=== PATIENT | male | born 1960 | race Caucasian/White ===

== ENCOUNTER 2022-01-09 14:13 | Inpatient (IN) ==
[2022-01-09] MEDS ORDERED: ALBUTEROL/IPRATROPIUM 3 ML NEB RESP TX STA (14:35)
[2022-01-09] MEDS ORDERED: FUROSEMIDE 40 MG/4 ML VIAL IV STA (14:35)
[2022-01-09 15:10] LABS: Arterial Base Excess iSTAT 15 MMOL/L (-2.5-2.5); Arterial O2 Saturation iSTAT 82 % (95-100); Arterial PCO2 iSTAT 72 MM HG (35-48); Arterial PO2 iSTAT 49 MM HG (80-95); Arterial Total CO2 iSTAT 46 MMO/L (23-27); Arterial pH iSTAT 7.393 (7.35-7.45)
[2022-01-09] MEDS ORDERED: LEVOFLOXACIN INJ 750 MG/150 ML PREMIX IV STA (15:12)
[2022-01-09 15:27] LABS: INR 1.1; PT Patient Result 12.1 SECS (10.1-12.1); Partial Thromboplastin Time 34.1 SECS (23.7-32.9)
[2022-01-09 15:33] LABS: Alanine Aminotransferase 14 U/L (16-61); Albumin 1.7 G/DL (3.4-5.0); Alkaline Phosphatase 77 U/L (45-117); Aspartate Amino Transferase 17 U/L (0-37); Bilirubin,Total < 0.39 MG/DL (0.20-1.00); Blood Urea Nitrogen 7 MG/DL (7-18); Calcium 8.3 MG/DL (8.5-10.1); Carbon Dioxide 39 MMOL/L (21-32); Chloride 97 MMOL/L (98-107); Glucose 179 MG/DL (74-106); Osmolality,Calculated 278.5 MOS/KG (273-304); Potassium 3.4 MMOL/L (3.5-5.1); Sodium 139 MMOL/L (136-145); Total Protein 6.4 G/DL (6.4-8.2)
[2022-01-09 15:38] LABS: Basophils % 0.2 % (0.0-0.8); Hematocrit 39.1 VOL% (42.0-52.0); Hemoglobin 11.5 GM/DL (14.0-18.0); Immature Granulocytes % 1.5 %; Immature Granulocytes Absolute 0.08 #; Lymphocytes # 0.4 10*3/uL (1.4-4.0); Lymphocytes % 7.6 % (21.2-54.2); Mean Corpuscular HGB Conc 29.4 GM/DL (32-36); Mean Corpuscular Volume 89.9 FL (87-102); Monocytes # 0.2 10*3/uL (0.11-0.8); Monocytes % 2.9 % (1.7-12.7); Neutrophils % 87.8 % (38.7-73.9); Platelet Count 147 T/CUMM (130-400); Red Blood Count 4.35 MC/CUMM (3.8-5.5); Red Cell Distribution Width 16.9 % (9.3-17.3); White Blood Count 5.2 T/CUMM (4-12)
[2022-01-09] MEDS ORDERED: ACETAMINOPHEN 325 MG TABLET PO PRN (16:58)
[2022-01-09] MEDS ORDERED: GLUCAGON 1 MG VIAL IM PRN (16:58)
[2022-01-09] MEDS ORDERED: hydrALAZINE 20 MG/1 ML VIAL IV PRN (16:58)
[2022-01-09] MEDS ORDERED: ALBUTEROL 2.5 MG/3 ML NEB RESP TX PRN (16:58)
[2022-01-09] MEDS ORDERED: ONDANSETRON 4 MG/2 ML VIAL IV PRN (16:58)
[2022-01-09] MEDS ORDERED: DEXTROSE 10% 250 ML BAG IV PRN (16:58)
[2022-01-09 17:37] LABS: Risk Ratio 2.65; Thyroid Stimulating Hormone 4.84 uIU/ml (0.358-3.74)
[2022-01-09 17:46] LABS: Amorphous Crystals,Urine Occasional /HPF (Few); Bacteria,Urine Occasional /HPF (Few); Hyaline Casts,Urine 1 /LPF (0-3); Mucus,Urine Occasional /LPF (Occasional); RBC,Urine 33 /HPF (0-4); Squamous Epithelial Cell,Urine Occasional /HPF (0-10); Triple Phosphate Crystal,Urine Occasional /HPF (Few)
[2022-01-09 17:48] LABS: Protein,Urine Negative (Negative); Urine Appearance Slightly Hazy (Clear); Urine Color Light Yellow (Yellow); Urine Specific Gravity 1.015 (1.001-1.035); Urine pH 7.5 (4.5-8.0)
[2022-01-09 17:49] LABS: Bilirubin,Urine Negative (Negative); Blood, Urine Large mg/dL (Negative); Glucose,Urine (UA) Negative (Negative); Ketones,Urine Negative (Negative); Nitrite,Urine Positive (Negative); Urine Urobilinogen 0.2 eU/dL (<2.0)
[2022-01-09] MEDS: ENOXAPARIN 40 MG/0.4 ML SYRINGE SUBCUT SCH (20:57)
[2022-01-09] MEDS: FUROSEMIDE 40 MG/4 ML VIAL IV SCH (20:58)
[2022-01-10 04:11] LABS: Arterial Base Excess iSTAT 23 MMOL/L (-2.5-2.5); Arterial Bicarbonate iSTAT 53.3 MMOL/L (20-26); Arterial O2 Saturation iSTAT 100 % (95-100); Arterial PCO2 iSTAT 86 MM HG (35-48); Arterial PO2 iSTAT 378 MM HG (80-95); Arterial Total CO2 iSTAT > 50 MMO/L (23-27); Arterial pH iSTAT 7.401 (7.35-7.45)
[2022-01-10 04:45] LABS: Hematocrit 37.1 VOL% (42.0-52.0); Hemoglobin 10.7 GM/DL (14.0-18.0); Immature Granulocytes Absolute 0.05 #; Lymphocytes # 0.6 10*3/uL (1.4-4.0); Lymphocytes % 10.9 % (21.2-54.2); Mean Corpuscular HGB Conc 28.8 GM/DL (32-36); Mean Corpuscular Volume 92.3 FL (87-102); Mean Platelet Volume 9.5 FL (9.6-12.0); Monocytes # 0.4 10*3/uL (0.11-0.8); Monocytes % 7.3 % (1.7-12.7); Neutrophils % 80.8 % (38.7-73.9); Platelet Count 128 T/CUMM (130-400); Red Blood Count 4.02 MC/CUMM (3.8-5.5); Red Cell Distribution Width 16.5 % (9.3-17.3); White Blood Count 5.2 T/CUMM (4-12)
[2022-01-10 05:36] LABS: Platelet Estimate Adequate
[2022-01-10 05:37] LABS: Calcium 8.4 MG/DL (8.5-10.1); Osmolality,Calculated 280.3 MOS/KG (273-304); Potassium 2.8 MMOL/L (3.5-5.1)
[2022-01-10] MEDS ORDERED: MAGNESIUM SULF RIDER 2 GM/50 ML PREMIX IV PRN (05:41)
[2022-01-10] MEDS ORDERED: POTASSIUM CHLORIDE 20 MEQ TABLET PO PRN (05:41)
[2022-01-10] MEDS ORDERED: MAGNESIUM SULF RIDER 4 GM/100 ML PREMIX IV PRN (05:41)
[2022-01-10] MEDS: POTASSIUM CHLORIDE RIDER 10 MEQ/100 ML PREMIX IV PRN ×5 (07:21→12:07)
[2022-01-10] MEDS ORDERED: MAGNESIUM SULF RIDER 2 GM/50 ML PREMIX IV ONE ×2 (08:04→12:00)
[2022-01-10] MEDS: ESCITALOPRAM 10 MG TABLET PO SCH (09:02)
[2022-01-10] MEDS: PANTOPRAZOLE 40 MG TABLET PO SCH (09:02)
[2022-01-10] MEDS: FUROSEMIDE 40 MG/4 ML VIAL IV SCH ×2 (09:03→16:10)
[2022-01-10 10:34] LABS: Free T4 (Free Thyroxine) 1.1 NG/DL (0.76-1.46)
[2022-01-10] MEDS: POTASSIUM CHLORIDE 20 MEQ TABLET PO SCH ×2 (16:05→21:23)
[2022-01-10] MEDS: LEVOFLOXACIN INJ 750 MG/150 ML PREMIX IV SCH (16:13)
[2022-01-10] MEDS ORDERED: SODIUM CHLORIDE 0.9% 250 ML IV STA (18:00)
[2022-01-10 19:50] LABS: Arterial Base Excess iSTAT 25 MMOL/L (-2.5-2.5); Arterial Bicarbonate iSTAT 52.9 MMOL/L (20-26); Arterial O2 Saturation iSTAT 88 % (95-100); Arterial PCO2 iSTAT 66 MM HG (35-48); Arterial PO2 iSTAT 52 MM HG (80-95); Arterial Total CO2 iSTAT > 50 MMO/L (23-27); Arterial pH iSTAT 7.509 (7.35-7.45)
[2022-01-10] MEDS ORDERED: methylPREDNISolone SOD SUC 125 MG/2 ML VIAL IV ONE ×2 (20:30→21:00)
[2022-01-10] MEDS: ALBUTEROL/IPRATROPIUM 3 ML NEB RESP TX SCH (20:30)
[2022-01-10] MEDS: ENOXAPARIN 40 MG/0.4 ML SYRINGE SUBCUT SCH (21:23)
[2022-01-11] MEDS: ALBUTEROL/IPRATROPIUM 3 ML NEB RESP TX SCH ×4 (01:05→19:02)
[2022-01-11] MEDS: methylPREDNISolone SOD SUC 125 MG/2 ML VIAL IV SCH ×3 (04:04→20:55)
[2022-01-11 04:53] LABS: Arterial Base Excess iSTAT 19 MMOL/L (-2.5-2.5); Arterial Bicarbonate iSTAT 46.8 MMOL/L (20-26); Arterial O2 Saturation iSTAT 94 % (95-100); Arterial PCO2 iSTAT 69 MM HG (35-48); Arterial PO2 iSTAT 73 MM HG (80-95); Arterial Total CO2 iSTAT 49 MMO/L (23-27); Arterial pH iSTAT 7.438 (7.35-7.45)
[2022-01-11 06:15] LABS: Calcium 8.3 MG/DL (8.5-10.1); Osmolality,Calculated 272.2 MOS/KG (273-304); Potassium 2.9 MMOL/L (3.5-5.1)
[2022-01-11 06:33] LABS: Hematocrit 39.2 VOL% (42.0-52.0); Hemoglobin 11.5 GM/DL (14.0-18.0); Immature Granulocytes % 1.3 %; Immature Granulocytes Absolute 0.07 #; Lymphocytes # 0.4 10*3/uL (1.4-4.0); Lymphocytes % 6.5 % (21.2-54.2); Mean Corpuscular HGB Conc 29.3 GM/DL (32-36); Mean Corpuscular Volume 88.9 FL (87-102); Mean Platelet Volume 9.8 FL (9.6-12.0); Monocytes # 0.1 10*3/uL (0.11-0.8); Monocytes % 2.1 % (1.7-12.7); Neutrophils % 90.1 % (38.7-73.9); Platelet Count 158 T/CUMM (130-400); Red Blood Count 4.41 MC/CUMM (3.8-5.5); Red Cell Distribution Width 16.2 % (9.3-17.3); White Blood Count 5.4 T/CUMM (4-12)
[2022-01-11] MEDS: FUROSEMIDE 40 MG/4 ML VIAL IV SCH ×2 (09:07→15:14)
[2022-01-11] MEDS: POTASSIUM CHLORIDE 20 MEQ TABLET PO SCH ×2 (09:07→20:55)
[2022-01-11] MEDS: ESCITALOPRAM 10 MG TABLET PO SCH (09:07)
[2022-01-11] MEDS: PANTOPRAZOLE 40 MG TABLET PO SCH (09:07)
[2022-01-11] MEDS: POTASSIUM CHLORIDE RIDER 10 MEQ/100 ML PREMIX IV PRN ×5 (14:57→18:44)
[2022-01-11] MEDS: LEVOFLOXACIN INJ 750 MG/150 ML PREMIX IV SCH (15:14)
[2022-01-11] MEDS: ENOXAPARIN 40 MG/0.4 ML SYRINGE SUBCUT SCH (20:55)
[2022-01-11] MEDS: DOCUSATE SODIUM 100 MG CAPSULE PO PRN (20:56)
[2022-01-11] MEDS: DESITIN 4OZ/NYSTATIN 15 GRAM MIXTURE PASTE TOP SCH (21:07)
[2022-01-12] MEDS: ALBUTEROL/IPRATROPIUM 3 ML NEB RESP TX SCH ×4 (00:10→19:39)
[2022-01-12] MEDS: methylPREDNISolone SOD SUC 125 MG/2 ML VIAL IV SCH ×2 (05:21→16:19)
[2022-01-12 06:04] LABS: Calcium 8.3 MG/DL (8.5-10.1); Osmolality,Calculated 275.2 MOS/KG (273-304); Potassium 2.9 MMOL/L (3.5-5.1)
[2022-01-12] MEDS: LEVOTHYROXINE 100 MCG TABLET PO SCH (06:04)
[2022-01-12 06:14] LABS: Basophils % 0.2 % (0.0-0.8); Hematocrit 38.9 VOL% (42.0-52.0); Hemoglobin 11.9 GM/DL (14.0-18.0); Immature Granulocytes % 1.5 %; Immature Granulocytes Absolute 0.09 #; Lymphocytes # 0.5 10*3/uL (1.4-4.0); Lymphocytes % 7.5 % (21.2-54.2); Mean Corpuscular HGB Conc 30.6 GM/DL (32-36); Mean Platelet Volume 10.1 FL (9.6-12.0); Monocytes # 0.3 10*3/uL (0.11-0.8); Monocytes % 5.6 % (1.7-12.7); Neutrophils % 85.2 % (38.7-73.9); Platelet Count 154 T/CUMM (130-400); Red Blood Count 4.47 MC/CUMM (3.8-5.5); Red Cell Distribution Width 16.4 % (9.3-17.3)
[2022-01-12] MEDS ORDERED: POTASSIUM CHLORIDE 20 MEQ TABLET PO PRN (08:16)
[2022-01-12] MEDS ORDERED: MAGNESIUM SULF RIDER 2 GM/50 ML PREMIX IV ONE (08:17)
[2022-01-12] MEDS: FUROSEMIDE 40 MG/4 ML VIAL IV SCH (08:55)
[2022-01-12] MEDS: ESCITALOPRAM 10 MG TABLET PO SCH (09:06)
[2022-01-12] MEDS: FUROSEMIDE 40 MG TABLET PO SCH (09:06)
[2022-01-12] MEDS: POTASSIUM CHLORIDE 20 MEQ TABLET PO SCH ×2 (09:08→21:24)
[2022-01-12] MEDS: PANTOPRAZOLE 40 MG TABLET PO SCH (09:09)
[2022-01-12] MEDS: DESITIN 4OZ/NYSTATIN 15 GRAM MIXTURE PASTE TOP SCH ×2 (09:10→21:25)
[2022-01-12] MEDS: LEVOFLOXACIN INJ 750 MG/150 ML PREMIX IV SCH (16:22)
[2022-01-12] MEDS: SKIN HEALING OINT (AQUAPHOR) 50 GM TUBE TOP PRN (18:37)
[2022-01-12] MEDS: ENOXAPARIN 40 MG/0.4 ML SYRINGE SUBCUT SCH (21:24)
[2022-01-13] MEDS: ALBUTEROL/IPRATROPIUM 3 ML NEB RESP TX SCH ×2 (01:39→07:08)
[2022-01-13] MEDS: methylPREDNISolone SOD SUC 125 MG/2 ML VIAL IV SCH (04:34)
[2022-01-13] MEDS: LEVOTHYROXINE 100 MCG TABLET PO SCH (05:19)
[2022-01-13 09:04] LABS: Calcium 8.4 MG/DL (8.5-10.1); Osmolality,Calculated 281.1 MOS/KG (273-304); Potassium 3.5 MMOL/L (3.5-5.1)
[2022-01-13] MEDS: POTASSIUM CHLORIDE 20 MEQ TABLET PO SCH (10:53)
[2022-01-13] MEDS: DOCUSATE SODIUM 100 MG CAPSULE PO PRN (10:54)
[2022-01-13] MEDS: SKIN HEALING OINT (AQUAPHOR) 50 GM TUBE TOP PRN (10:55)
[2022-01-13] MEDS: DESITIN 4OZ/NYSTATIN 15 GRAM MIXTURE PASTE TOP SCH (10:55)
[2022-01-13] MEDS: FUROSEMIDE 40 MG TABLET PO SCH (10:55)
[2022-01-13] MEDS: ESCITALOPRAM 10 MG TABLET PO SCH (10:55)
[2022-01-13] MEDS: PANTOPRAZOLE 40 MG TABLET PO SCH (10:58)
[2022-01-13 13:05] VITALS: BP 111/64
== END 2022-01-13 14:51 | DRG 291 ==
LOC: N.ED 14:13 → SUATTDRO 16:58 → N.EDINP 16:58 → N.TELEN 01-10 18:55
PROVIDERS: ADMIT Hospitalist; ATTEND Internal Medicine Geriatric Medicine